=== PATIENT | female | born 1960 | race Caucasian/White ===

== ENCOUNTER 2020-01-12 13:42 | Emergency (ER) | payer OTHER ==
[~2020-01-12] VITALS: Ht 177.8 cm; Wt 80.0 kg
[~2020-01-12 13:42] MED LIST: ALEN70TA13 PO; ONQPUMP ADDCANAL; ZOLM5TAB9 PO
[2020-01-12 16:09] LABS: BASOPHILS # (AUTO) 0.1 X10'3 (0-0.2); BASOPHILS % (AUTO) 0.9 % (0-1); EOSINOPHILS # (AUTO) 0.2 X10'3 (0-0.9); EOSINOPHILS % (AUTO) 3.2 % (0-6); HEMATOCRIT 37.9 % (35.0-45.0); HEMOGLOBIN 12.4 g/dl (12.0-16.0); LYMPHOCYTES # (AUTO) 2.1 X10'3 (1.1-4.8); LYMPHOCYTES % (AUTO) 36.3 % (21-51); MEAN CORPUSCULAR HEMOGLOBIN 28.7 PG (27.0-31.0); MEAN CORPUSCULAR HGB CONC 32.9 g/dL (33.0-36.5); MEAN CORPUSCULAR VOLUME 87.2 FL (78-98); MEAN PLATELET VOLUME 8.7 FL (7.4-10.4); MONOCYTES # (AUTO) 0.3 X10'3 (0-0.9); MONOCYTES % (AUTO) 4.6 % (2-12); NEUTROPHILS # (AUTO) 3.2 X10'3 (1.8-7.7); PLATELET COUNT 321 X10'3 (140-440); RED BLOOD COUNT 4.34 X10'6 (4.20-5.60); RED CELL DISTRIBUTION WIDTH 13.4 % (11.5-14.5); WHITE BLOOD COUNT 5.8 X10'3 (4.5-11.0)
[2020-01-12 16:15] LABS: ALBUMIN 3.7 G/DL (3.4-5.0); ANION GAP 6 (8-16); BLOOD UREA NITROGEN 11 MG/DL (7-18); BUN/CREATININE RATIO 10.9 (6.6-38.0); C-REACTIVE PROTEIN 2.82 MG/DL (0.0-0.5); CALCIUM 9.8 MG/DL (8.5-10.1); CHLORIDE 102 MMOL/L (99-107); CREATININE 1.01 MG/DL (0.40-0.90); GLUCOSE 93 MG/DL (70-104); POTASSIUM 4.1 MMOL/L (3.5-5.1); SODIUM 138 MMOL/L (135-145); TOTAL CARBON DIOXIDE 29.9 MMOL/L (24-32); eGFR 56 ML/MIN
[2020-01-12 16:56] VITALS: BP 113/72
== END 2020-01-12 17:27 | disposition home or self-care (01) ==
LOC: ER 13:45
DX: G89.18 Other acute postprocedural pain (principal); M25.561 Pain in right knee; Z88.8 Allergy status to other drugs, medicaments and biological substances; Z79.899 Other long term (current) drug therapy
CPT/HCPCS: 36415; 73564; 80048; 85025; 85651; 86140; 93971; 99285

== ENCOUNTER 2023-06-26 14:00 | Emergency (ER) | payer OTHER ==
[~2023-06-26] VITALS: Ht 176.5 cm; Wt 89.0 kg
[~2023-06-26 14:00] MED LIST changes: -ALEN70TA13 PO; +ALEN70TA80 PO
[2023-06-26 14:03] VITALS: TEMP 98
[2023-06-26] MEDS ORDERED: BENZ200C53 PO (15:40)
[2023-06-26] MEDS ORDERED: LIDO700A47 (15:40)
[2023-06-26 15:55] VITALS: BP 132/92; PULSE 79; RESP 18; O2SAT 100
[2023-06-26] MEDS: ibuprofen tablet 400 MG TABLET PO ONE (16:23)
== END 2023-06-26 18:52 | disposition home or self-care (01) ==
LOC: ER 14:01
DX: G89.29 Other chronic pain (principal); M54.9 Dorsalgia, unspecified; M54.6 Pain in thoracic spine; Z88.5 Allergy status to narcotic agent; Z79.899 Other long term (current) drug therapy; W19.XXXA Unspecified fall, initial encounter; Y93.89 Activity, other specified; Y92.89 Other specified places as the place of occurrence of the external cause; Y99.8 Other external cause status
CPT/HCPCS: 72070; 72100; 99284